=== PATIENT | female | born 1995 | race American Indian/Alaskan Native ===

== ENCOUNTER 2016-12-29 13:05 | Emergency (ER) | payer MEDICAID ==
[2016-12-29 14:16] LABS: Hematocrit 33.5 % (30.3-42.9); Hemoglobin 10.3 gm/dl (10.1-14.3); Mean Corpuscular HGB Conc 31 % (30-34); Mean Corpuscular Hemoglobin 26 pg (28-32); Mean Corpuscular Volume 86 fl (79-97); Red Blood Count 3.91 M/mm3 (3.65-5.03); Red Cell Distribution Width 13.5 % (13.2-15.2); White Blood Count 11.2 K/mm3 (4.5-11.0)
[2016-12-29 14:26] LABS: Anion Gap 15 mmol/L; BUN/Creatinine Ratio 9; Blood Urea Nitrogen 6 mg/dL (7-17); Calcium 8.5 mg/dL (8.4-10.2); Carbon Dioxide 25 mmol/L (22-30); Chloride 106.5 mmol/L (98-107); Glucose 91 mg/dL (65-100); Potassium 3.6 mmol/L (3.6-5.0); Sodium 143 mmol/L (137-145)
[2016-12-29 14:46] LABS: Platelet Count 231 K/mm3 (140-440)
[2016-12-29 16:05] LABS: Bilirubin,Urine NEG (Negative); Blood,Urine MOD (Negative); Ketones,Urine NEG (Negative); Leukocyte Esterase,Urine NEG (Negative); Mucus,Urine FEW /HPF; Nitrite,Urine NEG (Negative); Protein,Urine <15 mg/dL mg/dL (Negative); Urobilinogen,Urine < 2.0 mg/dL (<2.0); WBC,Urine < 1.0 /HPF (0.0-6.0)
--- NOTE | 2016-12-29 19:34 | Emergency Department Report ---
ED General Adult HPI - General Chief complaint: Vaginal Bleeding Stated complaint: BLOOD CLOTS Time Seen by Provider: 12/29/16 18:19 Source: patient Mode of arrival: Ambulatory Limitations: No Limitations - History of Present Illness Initial comments: 21 year old female presents with heavy vaginal bleeding for 3 days. states that she has implant control for about 18 months and cycles have been irregular. states that last 2 days she has been having heavy clots. come out. states pelvic pain is mild. denies fever, cp, sob, abdominal pain, NVD, dysuria , vaginal discharge. - Related Data Allergies Allergy/AdvReac Type Severity Reaction Status Date / Time ibuprofen Allergy Hives Verified 12/29/16 13:32 ED Review of Systems ROS: Stated complaint: BLOOD CLOTS Other details as noted in HPI Constitutional: denies: chills, fever Eyes: denies: eye pain, eye discharge, vision change ENT: denies: ear pain, throat pain Respiratory: denies: cough, shortness of breath, wheezing Cardiovascular: denies: chest pain, palpitations Endocrine: no symptoms reported Gastrointestinal: denies: abdominal pain, nausea, diarrhea Genitourinary: abnormal menses. denies: urgency, dysuria, discharge Musculoskeletal: denies: back pain, joint swelling, arthralgia Skin: denies: rash, lesions Neurological: denies: headache, weakness, paresthesias Psychiatric: denies: anxiety, depression Hematological/Lymphatic: denies: easy bleeding, easy bruising ED Past Medical Hx - Past Medical History Previous Medical History?: No - Surgical History Past Surgical History?: No - Social History Smoking Status: Never Smoker Substance Use Type: Marijuana ED Physical Exam - General Limitations: No Limitations General appearance: alert, in no apparent distress - Head Head exam: Present: atraumatic, normocephalic - Eye Eye exam: Present: normal appearance - ENT ENT exam: Present: mucous membranes moist - Neck Neck exam: Present: normal inspection - Respiratory Respiratory exam: Present: normal lung sounds bilaterally. Absent: respiratory distress - Cardiovascular Cardiovascular Exam: Present: regular rate, normal rhythm. Absent: systolic murmur, diastolic murmur, rubs, gallop - GI/Abdominal GI/Abdominal exam: Present: soft, normal bowel sounds. Absent: distended, tenderness, guarding, rebound, rigid - Extremities Exam Extremities exam: Present: normal inspection - Back Exam Back exam: Present: normal inspection - Neurological Exam Neurological exam: Present: alert, oriented X3 - Psychiatric Psychiatric exam: Present: normal affect, normal mood - Skin Skin exam: Present: warm, dry, intact, normal color. Absent: rash ED Course Vital Signs 12/29/16 13:30 Temperature 98.9 F Pulse Rate 60 Respiratory 18 Rate Blood Pressure 124/76 O2 Sat by Pulse 100 Oximetry ED Medical Decision Making - Lab Data Result diagrams: 12/29/16 13:51 12/29/16 13:51 Vital Signs 12/29/16 13:30 Temperature 98.9 F Pulse Rate 60 Respiratory 18 Rate Blood Pressure 124/76 O2 Sat by Pulse 100 Oximetry Laboratory Results - last 24 hr 12/29/16 12/29/16 12/29/16 13:51 13:51 13:51 WBC 11.2 H RBC 3.91 Hgb 10.3 Hct 33.5 MCV 86 MCH 26 L MCHC 31 RDW 13.5 Plt Count 231 Sodium 143 Potassium 3.6 Chloride 106.5 Carbon Dioxide 25 Anion Gap 15 BUN 6 L Creatinine 0.7 Estimated GFR > 60 BUN/Creatinine Ratio 9 Glucose 91 Calcium 8.5 HCG, Quant < 2 Urine Color Urine Turbidity Urine pH Ur Specific [place] Urine Protein Urine Glucose (UA) Urine Ketones Urine Blood Urine Nitrite Urine Bilirubin Urine Urobilinogen Ur Leukocyte Esterase Urine WBC (Auto) Urine RBC (Auto) U Epithel Cells (Auto) Urine Mucus Blood Type Antibody Screen BRI Antibody Screen 12/29/16 12/29/16 13:55 15:03 WBC RBC Hgb Hct MCV MCH MCHC RDW Plt Count Sodium Potassium Chloride Carbon Dioxide Anion Gap BUN Creatinine Estimated GFR BUN/Creatinine Ratio Glucose Calcium HCG, Quant Urine Color Yellow Urine Turbidity Clear Urine pH 8.0 H Ur Specific [place] 1.016 Urine Protein <15 mg/dl Urine Glucose (UA) Neg Urine Ketones Neg Urine Blood Mod Urine Nitrite Neg Urine Bilirubin Neg Urine Urobilinogen < 2.0 Ur Leukocyte Esterase Neg Urine WBC (Auto) < 1.0 Urine RBC (Auto) 10.0 U Epithel Cells (Auto) < 1.0 Urine Mucus Few Blood Type B POSITIVE Antibody Screen TNR BRI Antibody Screen Negative - Medical Decision Making patient is resting comfortably at this time. VSS and patient is hemodynamically stable and nontoxic appearing. H/H WNL. NAD at this time. will fu with obgyn Critical care attestation.: If time is entered above; I have spent that time in minutes in the direct care of this critically ill patient, excluding procedure time. ED Disposition Clinical Impression: DUB (dysfunctional uterine bleeding) Disposition: TO HOME OR SELFCARE Is pt being admited?: No Does the pt Need Aspirin: No Condition: Good Instructions: Dysfunctional Uterine Bleeding (ED) Referrals: PRIMARY CARE, [Primary Care Provider] - 3-5 Days Forms: Work/School Release Form(ED) Time of Disposition: 19:46
[2016-12-30 11:37] VITALS: BP 106/71
== END 2016-12-29 20:30 | disposition home or self-care (01) ==
LOC: ED 13:05
DX: N93.8 Other specified abnormal uterine and vaginal bleeding (principal); F12.10 Cannabis abuse, uncomplicated; Z88.6 Allergy status to analgesic agent
CPT/HCPCS: 36415; 80048; 81001; 84702; 85027; 86850; 86900; 86901; 99283

== ENCOUNTER 2017-04-19 18:00 | Emergency (ER) | payer SELFPAY ==
[2017-04-19 18:35] VITALS: BP 111/64
[2017-04-19] MEDS ORDERED: LIDOCAINE VISCOUS 2% PO ONE (20:06)
[2017-04-19] MEDS ORDERED: TYLENOL PO ONE (20:06)
--- NOTE | 2017-04-19 20:11 | Emergency Department Report ---
ED General Adult HPI - General Chief complaint: Sore Throat Stated complaint: SORE THROAT Time Seen by Provider: 04/19/17 19:59 Source: patient, RN notes reviewed Mode of arrival: Ambulatory Limitations: No Limitations - History of Present Illness Initial comments: This is a 21-year-old female who is previously unknown to this provider, the patient reports that she is not . The patient presents to the ER with a complaint of sore throat, body aches, chills, malaise, myalgias for 4 days. Symptoms constant. Positive dry cough. Not sure she's had a fever. Her symptoms do not radiate anywhere, and he did not have exacerbating or relieving factors. -: Gradual Location: mouth, back, left, right, upper extremity, lower extremity Radiation: non-radiation Quality: aching Consistency: constant Improves with: none Worsens with: none Associated Symptoms: cough, fever/chills, headaches, loss of appetite, malaise, nausea/vomiting, weakness. denies: confusion, chest pain, diaphoresis, rash, seizure, shortness of breath, syncope - Related Data Previous Rx's Medication Instructions Recorded Last Taken Type Acetaminophen [Tylenol Extra 500 mg PO Q6HR PRN #30 tablet 04/19/17 Unknown Rx Strength] Lidocaine Viscous 2% 15 ml MM Q4HR PRN #10 udc 04/19/17 Unknown Rx Allergies Allergy/AdvReac Type Severity Reaction Status Date / Time ibuprofen Allergy Hives Verified 12/29/16 13:32 ED Review of Systems ROS: Stated complaint: SORE THROAT Other details as noted in HPI ED Past Medical Hx - Past Medical History Previous Medical History?: No - Social History Smoking Status: Never Smoker Substance Use Type: Marijuana - Medications Home Medications: Home Medications Medication Instructions Recorded Confirmed Last Taken Type Acetaminophen [Tylenol Extra 500 mg PO Q6HR PRN #30 tablet 04/19/17 Unknown Rx Strength] Lidocaine Viscous 2% 15 ml MM Q4HR PRN #10 udc 04/19/17 Unknown Rx ED Physical Exam - General Limitations: No Limitations General appearance: alert, in no apparent distress - Head Head exam: Present: atraumatic, normocephalic - Eye Eye exam: Present: normal appearance, EOMI. Absent: nystagmus - ENT ENT exam: Present: normal exam, normal orophraynx, mucous membranes moist, TM's normal bilaterally, normal external ear exam - Neck Neck exam: Present: normal inspection, full ROM. Absent: tenderness, meningismus, lymphadenopathy - Respiratory Respiratory exam: Present: normal lung sounds bilaterally. Absent: respiratory distress - Cardiovascular Cardiovascular Exam: Present: regular rate, normal rhythm, normal heart sounds. Absent: bradycardia, tachycardia, irregular rhythm, systolic murmur, diastolic murmur, rubs, gallop - GI/Abdominal GI/Abdominal exam: Present: soft, normal bowel sounds. Absent: distended, tenderness, guarding, rebound, rigid, pulsatile mass - Extremities Exam Extremities exam: Present: normal inspection, full ROM, normal capillary refill. Absent: tenderness, pedal edema, joint swelling, calf tenderness - Back Exam Back exam: Present: normal inspection, full ROM. Absent: tenderness, CVA tenderness (R), paraspinal tenderness, vertebral tenderness - Neurological Exam Neurological exam: Present: alert, oriented X3, CN II-XII intact, normal gait, other (Extraocular movements intact. Tongue midline. No facial droop. Facial sensation intact to light touch in the V1, V2, V3 distribution bilaterally. 5 and 5 strength in 4 extremities.. Sensation is intact to light touch in 4 extremities.). Absent: motor sensory deficit - Psychiatric Psychiatric exam: Present: normal affect, normal mood - Skin Skin exam: Present: warm, dry, intact, normal color. Absent: rash ED Course Vital Signs 04/19/17 18:33 Temperature 98.6 F Pulse Rate 93 H Respiratory 16 Rate Blood Pressure 111/64 O2 Sat by Pulse 100 Oximetry ED Medical Decision Making - Lab Data Vital Signs 04/19/17 18:33 Temperature 98.6 F Pulse Rate 93 H Respiratory 16 Rate Blood Pressure 111/64 O2 Sat by Pulse 100 Oximetry - Medical Decision Making Differential diagnosis, including but not limited to: Influenza, influenza-like illness, pharyngitis, viral syndrome Assessment and plan: 21-year-old female on day 4 of clinical influenza-like illness. They should low risk by Centor score, does not require additional testing other than history and physical exam for strep, no obvious exudates noted. There is no stridor or dysphonia, she is tolerating liquid feeds, and she is protecting her airway. Patient given appropriate anticipatory guidance and counseling, felt improved after Tylenol and liquid lidocaine, patient will be discharged at this time, no indication for Tamiflu given 4 days of symptoms Critical care attestation.: If time is entered above; I have spent that time in minutes in the direct care of this critically ill patient, excluding procedure time. ED Disposition Clinical Impression: Influenza-like illness Disposition: DC-01 TO HOME OR SELFCARE Is pt being admited?: No Does the pt Need Aspirin: No Condition: Stable Instructions: Viral Syndrome (ED) Additional Instructions: Take the medications as needed/directed. Symptoms likely to last for at least one other week. Please follow up the primary care doctor within the next 2 weeks. Return to the ER right away with new pain, worsened pain, migration of pain, confusion, intractable nausea or vomiting, inability to speak, inability to breathe, inability to tolerate liquid feeds. Referrals: CONNOR HERNANDEZ MD [Staff Physician] - 3-5 Days [facility] [Provider Group] - 3-5 Days Forms: Work/School Release Form(ED)
== END 2017-04-19 20:15 | disposition home or self-care (01) ==
LOC: ED 18:00
DX: J02.9 Acute pharyngitis, unspecified (principal); M79.1 Myalgia; R53.83 Other fatigue; R51 Headache; R63.0 Anorexia; R53.1 Weakness; F12.10 Cannabis abuse, uncomplicated; Z88.6 Allergy status to analgesic agent
CPT/HCPCS: 99282